=== PATIENT | female | born 1985 | race Caucasian/White ===

== ENCOUNTER 2019-10-19 18:31 | Emergency (ER) | payer BC, OTHER, SELFPAY ==
[2019-10-19 18:35] VITALS: BP 123/93; PULSE 75; RESP 18; TEMP 36.8; O2SAT 100
--- NOTE | 2019-10-19 19:01 | ED.GENADULT ---
HPI - General Adult General Chief complaint: Unspecified Stated complaint: wanrs covid test/no symptoms Time Seen by Provider: 10/19/19 18:39 Source: patient Mode of arrival: ambulatory Limitations: no limitations History of Present Illness HPI narrative: Patient presents with chief complaint of needing to be tested for comfortably as her [id number] tested positive for her has been asymptomatic. Patient states she has had a mild headache but otherwise has not had any fevers, chills, nausea, vomiting, cough or shortness of breath. Patient denies any other comorbidities. Related Data Allergies Allergy/AdvReac Type Severity Reaction Status Date / Time No Known Allergies Allergy Mild Verified 07/11/17 13:31 Review of Systems Review of Systems: Narrative: CONSTITUTIONAL: Denies fever, chills, or sweats. EYES: Denies visual changes, redness, or discharge. ENT: Denies rhinorrhea, congestion, sore throat, or otalgia. CARDIOVASCULAR: Denies chest pain, palpitations, or edema. RESPIRATORY: Denies cough or dyspnea. GASTROINTESTINAL: Denies abdominal pain, nausea, vomiting, or diarrhea. GENITOURINARY: Denies dysuria or hematuria. SKIN: Denies rash or itching. MUSCULOSKELETAL: Denies back pain, joint pain, or myalgia. NEUROLOGIC: Reports mild headache, denies numbness, dizziness, or weakness. PSYCHIATRIC: Denies anxiety or depression. [facility] Family History Family History (Updated 07/19/17 @ 14:03 by DOCTOR UNKNOWN) Sibling Patient's sister is in good health Patient's brother is in good health Father Family history unknown Mother Family history of lung cancer Social History Social History Smoking status: Never smoker Alcohol intake: current Gender identity (if verbalized by the patient): Female Exam Narrative: Exam Narrative: GENERAL: Well-appearing, well-nourished, and in no acute distress. HEAD: Normocephalic, atraumatic. EYES: PERRLA and EOMI. ENT: Nares clear, no rhinorrhea or epistaxis. Mucous membranes moist. NECK: Supple. No adenopathy or masses. CHEST: No respiratory distress. No tachypnea. No shallow respirations. EXTREMITIES: Normal range of motion. No edema. SKIN: Warm, dry, no rash. NEURO: No focal deficits. Alert and oriented x3. PSYCH: Normal mood and affect. Course Vital Signs Vital signs: Vital Signs Temperature 98.3 F 10/19/19 18:35 Pulse Rate 75 10/19/19 18:35 Respiratory Rate 18 10/19/19 18:35 Blood Pressure 123/93 H 10/19/19 18:35 Pulse Oximetry 100 10/19/19 18:35 Temperature 98.3 F 10/19/19 18:35 Pulse Rate 75 10/19/19 18:35 Respiratory Rate 18 10/19/19 18:35 Blood Pressure 123/93 H 10/19/19 18:35 Pulse Oximetry 100 10/19/19 18:35 Medical Decision Making Vital Signs Vital Signs: Vital Signs Temperature 98.3 F 10/19/19 18:35 Pulse Rate 75 10/19/19 18:35 Respiratory Rate 18 10/19/19 18:35 Blood Pressure 123/93 H 10/19/19 18:35 Pulse Oximetry 100 10/19/19 18:35 Temperature 98.3 F 10/19/19 18:35 Pulse Rate 75 10/19/19 18:35 Respiratory Rate 18 10/19/19 18:35 Blood Pressure 123/93 H 10/19/19 18:35 Pulse Oximetry 100 10/19/19 18:35 Discharge Plan Discharge Clinical Impression: Acute viral syndrome Disposition: Home, Self-Care Condition: Improved Instructions: Antibiotic Form, Viral Syndrome (ED) Additional Instructions: Follow the health department and CDC recommendations regarding quarantine instructions and self isolation. Follow-up with your primary care for COVID results. Patient cannot get results from your primary care contact your primary care airport tower controller Dr. García. Return to emergency department if you have any emergent symptoms. Follow-up/Referrals: PHYSICIAN,VICE PRESIDENT OF TALENT MANAGEMENT [Primary Care Provider] - Malika García MD [Physician] - Time of Disposition: 19:06
[2019-10-20 14:10] LABS: SARS-CoV-2 RNA PCR Positive
== END 2019-10-19 19:25 | disposition home or self-care (01) ==
PROVIDERS: Physician Assistant; Emergency Provider Emergency Medicine
DX: U07.1 COVID-19 (principal)
CPT/HCPCS: 87635; 99283; C9803; U0003